=== PATIENT | male | born 1950 | race Caucasian/White ===

== ENCOUNTER 2016-12-01 06:19 | Day surgery (SDC) | payer BC ==
--- NOTE | 2016-11-23 16:55 | HP ---
CC: Dr. Yee; Dr. Colin * ADMITTING HISTORY AND PHYSICAL: DATE OF ADMISSION: 12/01/16 ADMITTING DIAGNOSIS: Left renal calculi. PLANNED PROCEDURE: Shockwave lithotripsy of left renal calculi. SURGEON: Dr. Rueda. HISTORY OF PRESENT ILLNESS: Chase Robertson a 66-year-old gentleman with a history of recurrent renal calculi and episodic flank pain who was noted to have a 9.6- mm calculus in the upper pole of the left kidney and a 4.7-mm calculus in the mid pole. He is now being brought in for lithotripsy. PAST MEDICAL HISTORY: Significant for: 1. Idiopathic peripheral autonomic neuropathy. 2. Renal calculi. 3. Lumbar spinal stenosis. 4. Recent Lyme disease treated with doxycycline. MEDICATIONS ON ADMISSION: Vitamins and supplements. ALLERGIES: 1. Intravenously administered IODINATED CONTRAST. REVIEW OF SYSTEMS: He is otherwise in excellent health. There is no history of diabetes mellitus or any other major systemic illness. PHYSICAL EXAMINATION GENERAL: Reveals a pleasant healthy-appearing middle-aged gentleman. VITAL SIGNS: Blood pressure is 128/84, pulse 74 per minute and regular, oxygen saturation 97% on room air. LUNGS: Clear bilaterally. CARDIOVASCULAR: Regular rate and rhythm. S1, S2. ABDOMEN: Soft with mild left flank tenderness. IMPRESSION: A 66-year-old gentleman with nonobstructing left renal calculi causing episodic flank pain. Planned procedure is shockwave lithotripsy left renal calculi. I have discussed the procedure in detail including possible risks of bleeding, infection, injury to the kidney, and incomplete fragmentation. He appears to understand and wishes to proceed as planned. [id number]/[facility] #: [id number] [facility]
[~2016-12-01 06:19] MED LIST: Buffered Lidocaine 0.9% SYRIN* 5 ML/SYR SYRINGE INTRADERM ONE
[2016-12-01] MEDS ORDERED: cefTRIAXone(*) 2 GM ADDV.VIAL IVPB ONE (06:54)
[2016-12-01] MEDS ORDERED: Buffered Lidocaine 0.9% SYRIN* 5 ML/SYR SYRINGE ONE (06:54)
[2016-12-01] MEDS ORDERED: fentaNYL* 50 MCG/ML 2 ML VIAL (100 MCG VIAL) ONE (08:02)
[2016-12-01] MEDS ORDERED: Propofol* 10 MG/ML 20 ML BTL IV PUSH ONE (08:03)
[2016-12-01] MEDS ORDERED: Lidocaine 2% PF * 5 ML VIAL ONE (08:03)
--- NOTE | 2016-12-01 08:03 | RAD ---
INDICATION: Shock wave lithotripsy of a left renal calculus COMPARISON: Most recent KUB is dated August 19, 2016 TECHNIQUE: 2 views the abdomen were obtained. FINDINGS: There are no acute bony or soft tissue abnormalities. The bowel gas pattern is normal. There is a moderate amount of stool overlying the renal shadows. Overlying the expected location of the left collecting system is a 6 mm calcification. Immediately inferior and lateral to this there is a punctate calcification measuring 2 mm. No calculi are seen overlying the right collecting system. There are no calculi visualized at the expected location of the bilateral ureters or urinary bladder. IMPRESSION: CALCULI OVERLYING THE LEFT RENAL COLLECTING SYSTEM NOT SIGNIFICANTLY CHANGED SINCE THE AUGUST 19, 2016 KUB.
[2016-12-01] MEDS ORDERED: fentaNYL* 50 MCG/ML 2 ML VIAL (100 MCG VIAL) IV PRN (08:25)
[2016-12-01] MEDS ORDERED: oxyCODONE/Acetamin 5/325 MG* TAB PO PRN (08:25)
[2016-12-01] MEDS ORDERED: Furosemide IV* 10 MG/ML 2 ML VIAL (20 MG) ONE (08:36)
[2016-12-01 10:37] VITALS: BP 128/91
--- NOTE | 2016-12-01 16:46 | OP ---
CC: Kaylee Yee MD; Vaughn Rueda MD* OPERATIVE SUMMARY: DATE OF OPERATION: 12/01/16 - [facility] DATE OF : 52 SURGEON: Vaughn Rueda MD. ANESTHESIOLOGIST: Dr. Donovan. ANESTHESIA: General. PRE-OP DIAGNOSIS: Left renal calculi. POST-OP DIAGNOSIS: Left renal calculi. OPERATIVE PROCEDURE: Shockwave lithotripsy of left renal calculi. COMPLICATIONS: None. POSTOPERATIVE CONDITION: Stable. INDICATION: Chase Robertson is a 66-year-old gentleman with a history of recurrent renal calculi. He was recently evaluated and noted to have left renal calculi and is now being brought in for lithotripsy of the same. DESCRIPTION OF PROCEDURE: After induction of general anesthesia, the patient was placed on the lithotripsy table in supine position. There appeared to be two calculi adjacent to each other in the left kidney and these were localized using fluoroscopic monitoring. Shockwave lithotripsy was commenced at a rate of 90 shocks per minute. After the initial 300 shocks, there was a pause in lithotripsy for several minutes in an effort to minimize any potential trauma to the kidney. Lithotripsy was then resumed and a total of 2400 shocks were administered and good fragmentation was observed. The patient tolerated the procedure satisfactorily and was transferred back to the recovery area in stable condition. [id number]/[facility] #: [id number] [facility]
== END 2016-12-01 11:41 | disposition home or self-care (01) ==
LOC: OR 06:19
PROVIDERS: ATTEND Urology
DX: N20.0 Calculus of kidney (principal); Z91.041 Radiographic dye allergy status
CPT/HCPCS: 74000; J0696; J1940; J2704; J3010

== ENCOUNTER 2017-10-31 13:08 | Inpatient (IN) | payer BC ==
[2017-10-31] MEDS ORDERED: Heparin for STEMI(*) 5,000 UNITS/ML 1 ML VIAL IV ONE (13:09)
[2017-10-31] MEDS ORDERED: Ticagrelor* 90 MG TAB PO ONE (13:09)
[2017-10-31] MEDS ORDERED: Nitroglycerin TAB 0.4 MG* 0.4 MG TAB ONE (13:18)
--- NOTE | 2017-10-31 13:20 | ED ---
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 Patient states he felt chest pain, which is not unfamiliar to him, but this was much worse than normal. EMS states that he was not diaphoretic during transit, but had mild anxiety. BP at this time was 160/90. Aspirin and NTG was given by EMS during transit. The pain was rated 7/ 10 in severity initially, but is rated a 4/10 now. Symptoms aggravated by nothing. Symptoms alleviated by nothing. - History of Current Complaint Chief Complaint: EDChestPainROMI Time Seen by Provider: 10/31/17 13:09 Hx Obtained From: Patient, EMS Onset/Duration: Started Minutes Ago Timing: Constant Current Severity: Moderate Pain Intensity: 7 Pain Scale Used: 0-10 Numeric Aggravating Factor(s): Nothing Alleviating Factor(s): Nothing Associated Signs and Symptoms: Positive: Negative - diaphoresis, Anxiety - Allergy/Home Medications Allergies/Adverse Reactions: Allergies Allergy/AdvReac Type Severity Reaction Status Date / Time Iodinated Contrast- Oral and Allergy Hives Verified 10/31/17 15:33 IV Dye SEASONAL ALLERGIES Allergy Mild Unknown Uncoded 12/01/16 06:41 Reaction Details IVP DYE Allergy Hives Uncoded 12/01/16 06:41 PMH/Surg Hx/FS Hx/Imm Hx Previously Healthy: No Endocrine/Hematology History: Denies: Hx Diabetes Cardiovascular History: Denies: Hx Hypertension, Hx Pacemaker/ICD, Other Cardiovascular Problems/ Disorders Respiratory History: Reports: Hx Seasonal Allergies Denies: Other Respiratory Problems/Disorders GI History: Reports: Hx Gastroesophageal Reflux Disease - INFREQUENTLY 1 X MONTHLY R/T DIET Denies: Other GI Disorders History: Reports: Hx Kidney Stones - FREQUENTLY Denies: Hx Renal Disease Musculoskeletal History: Reports: Hx Arthritis - OSTEO, Other Musculoskeletal History - SPINAL STENOSIS Sensory History: Reports: 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 1979' KIDNEY STONE. 1984 RIGHT ANKLE FRACTURE [place]IF- [place]. 2002 HARDWARE REMOVAL RIGHT ANKLE, [facility] [place]. 06/22/2014 CYSTO STENT [facility] [place]07/03/14 RIGHT STENT INSERTION [facility] [place]. 11/24/14, eswl. 12/18/14 eswl. SEVERAL SURGERIES IN 2014 FOR KIDNEY STONES- [facility] [place]. WISDOM TEETH REMOVAL Hx Anesthesia Reactions: No Infectious Disease History: No Infectious Disease History: Denies: Traveled Outside the [place] in Last 30 Days - Family History Known Family History: Positive: Cardiac Disease - Social History Alcohol Use: Weekly Alcohol Amount: 1-2 per week Hx Substance Use: No Substance Use Type: Reports: None Hx Tobacco Use: No Smoking Status (MU): Never Smoked Tobacco Have You Smoked in the Last Year: No Review of Systems Positive: Skin Diaphoresis. Negative: Fever Positive: Chest Pain All Other Systems Reviewed And Are Negative: Yes Physical Exam - Summary Physical Exam Summary: General: well-appearing, mild pain distress Skin: warm, color reflects adequate perfusion, dry Head: normal Eyes: EOMI, MARY JO ENT: normal Neck: supple, nontender Respiratory: CTA, breath sounds present Cardiovascular: RRR Abdomen: soft, nontender Bowel: present Musculoskeletal: normal, strength/ROM intact Neurological: sensory/motor intact, A&O x3 Psychological: affect/mood appropriate Triage Information Reviewed: Yes Vital Signs On Initial Exam: Initial Vitals Temp Pulse Resp BP Pulse Ox 97.2 F 77 20 139/76 99 10/31/17 13:12 10/31/17 13:12 10/31/17 13:12 10/31/17 13:12 10/31/17 13:12 Vital Signs Reviewed: Yes Diagnostics - Vital Signs Vital Signs Temp Pulse Resp BP Pulse Ox 10/31/17 13:12 97.2 F 77 20 139/76 99 - Laboratory Result Diagrams: 10/31/17 13:15 10/31/17 16:40 Lab Statement: Any lab studies that have been ordered have been reviewed, and results considered in the medical decision making process. 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 Patient states he felt chest pain, which is not unfamiliar to him, but this was much worse than normal. Bloodwork Obtained. In the ED course, patient was given Heparin 4000 units IV, NTG tablet 0.4mg SL, Brilinta 180mg PO. 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 CRITICAL CARE TIME LESS THAN 30 MINUTES. - Diagnoses Provider Diagnoses: STEMI (ST elevation myocardial infarction) Discharge - Sign-Out/Discharge Documenting (check all that apply): Patient Departure - Discharge Plan Condition: Stable Disposition: ADMITTED TO [facility] - Billing Disposition and Condition Condition: STABLE Disposition: Admitted to [facility] - Attestation Statements Document Initiated by Mahendra: Yes Documenting Scribe: Elizabeth Garcia Provider For Whom Mahendra is Documenting (Include Credential): Austin Jeronimo MD Scribe Attestation: Elizabeth Platt scribed for Austin Jeronimo MD on 10/31/17 at 1718. Scribe Documentation Reviewed: Yes Provider Attestation: The documentation as recorded by the Elizabeth betancourt accurately reflects the service I personally performed and the decisions made by me, Austin Jeronimo MD
--- OUTSIDE RECORDS SUMMARY | 2017-10-31 13:22 | XMS REPORT ---
:1950 External Reference #:[id number] Author Organization [facility] Address [address] [place] [address] Phone [phone] Care Team Providers Name Role Phone Kaylee Javier Care Team Information Health Unit Coordinator Unavailable Kaylee Javier Primary Care Physician Unavailable Payers Type Date Identification Numbers Payment Provider Subscriber Commercial Effective: Policy Number: [id number] Fowler Plan Cheryl Son 2014 PayID: [id number] [address] [place] [address] Problems Date Description Provider Status Onset: 09/10/2016 Spinal stenosis of lumbar region Kaylee Javier M.D. Active Onset: 10/13/2016 Other idiopathic peripheral Kaylee Javier M.D. Active autonomic neuropathy Onset: 10/13/2016 Kidney stone Kaylee Javier M.D. Active Family History Date Family Member(s) Problem(s) Comments General Prostate Cancer older brother. 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 1 drink a week. Smoking Patient has never smoked Daily Caffeine Daily Caffeine black Exercise Type/Frequency Exercises regularly morning routine - strengthening, stretching - 10-45 minutes. Ride bikes, yard work. Allergies, Adverse Reactions, Alerts Date Description Reaction Status Severity Comments 08/23/2015 IPV Dye active 01/01/2016 Seasonal active Medications Medication Date Status Form Strength Qnty SIG Indications Ordering Provider Doxycycline 10/21 Active Capsules 100mg 21cap take one S00.86xA Kaylee Quijano Hyclate s capsule by Concepcion, chelsy twice M.D. 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 M.DBrigid 10/21 Doxycycline 01/03 Hx Tablets 100mg 2tabs 2 tabs Kaylee Quijano Hyclate /2016 today Brent Javier.DBrigid 01/19 Doxycycline 07/28 Hx Capsules 100mg 2caps 2 po x 1 A69.20 Marianna Hyclate /2016 Brent Jonesnp-C 12/30 Doxycycline 01/31 Hx Capsules 100mg 2caps 2 po x 1 S30.860A Kaylee LBrigid Hyclate /2015 Brent JavierDBrigid 02/05 Doxycycline 12/31 Hx Capsules 100mg 2caps 2 po x 1 S30.860A Marianna Hyclate /2015 Brent Jones-C 01/01 Physical Therapy 10/29 Hx evaluate M48.06 Kaylee LBrigid /2015 and treat Brent Javier low back M.D. 06/17 pain Fax Melida HALE Physical Therapy 07/18 Hx evaluate M48.06 Kaylee LBrigid /2015 and treat Concepcion - low back M.D. 08/22 pain /2016 No Active 03/14 Hx Unknown Medications /2015 - 07/18 No Active 01/05 Hx Unknown Medications /2013 - 10/02 Doxycycline 12/15 Hx Tablets 100mg 42tab 1 by mouth 913.[address] blake twice a day Tyler, - x 3 wks Afnp-C 01/05 Ranitidine HCL 12/15 Hx Tablets 150mg 14tab 1 by mouth 913.4 Chelsea s twice a day Tyler, - x 5-7 days Af-C 12/22 Fexofenadine HCL 12/15 Hx Tablets 180mg 14tab 1 by mouth 913.4 Chelsea s every day x Tyler, - 2 wks Af- 12/29 No Active 09/30 Hx Unknown Medications /2013 - 12/15 Physical Therapy 09/27 Hx treatment Huey Mathew, /2013 and M.D. - evaluation 09/30 for sciatica No Active 05/18 Hx Unknown Medications /2013 - 05/18 Cyclobenzaprine 05/18 Hx Tablets 10mg 30tab 1 by mouth 724.3 Huey Mathew, s three times M.D. 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 05/18 Vivotif Keshia Hx Capsules 1 capsule Unknown Vaccine /0000 DR orally 1 - hour before 03/14 a meal alternate days of day 1, 3, 5 and 7 (one dose remaining) Magnesium Citrate Hx Tablets 100mg Unknown / - 12/31 Tumeric Hx Unknown / - 12/31 Calcium/Magnesium 00 Hx Tablets Vit D3 3 po qd / - 06/28 L-Lysine HCL 00 Hx Tablets 1 po qd Unknown / - 06/28 Vitamin B-12 Hx Tablets 1 po qd Unknown / - 08/07 /2017 Immunizations CPT Code Status Date Vaccine Lot # [id number] Given 05/05/2017 Pneumococcal Conjugate Vacc-13 [id number] Vital Signs Date Vital Result Comment 10/21/2017 BP Systolic 98 mmHg BP Diastolic 60 mmHg Heart Rate 64 /min Body Temperature 97.7 F Respiratory Rate 16 /min Height 68.75 inches 5'8.75" measured 05/05/17 Weight 157.00 lb BMI (Body Mass Index) 23.4 kg/m2 09/24/2017 BP Systolic 122 mmHg BP Diastolic 64 mmHg Heart Rate 66 /min Body Temperature 98.8 F Respiratory Rate 16 /min Height 68.75 inches 5'8.75" measured 05/05/17 Weight 159.12 lb BMI (Body Mass Index) 23.7 kg/m2 09/07/2017 BP Systolic 120 mmHg BP Diastolic 72 mmHg Heart Rate 78 /min Body Temperature 98.0 F Respiratory Rate 18 /min Height 68.75 inches 5'8.75" measured 05/05/17 Weight 158.00 lb BMI (Body Mass Index) 23.5 kg/m2 08/26/2017 BP Systolic 124 mmHg BP Diastolic 80 mmHg Heart Rate 60 /min Body Temperature 97.5 F Respiratory Rate 16 /min Height 68.75 inches 5'8.75" measured 05/05/17 Weight 158.50 lb BMI (Body Mass Index) 23.6 kg/m2 05/05/2017 BP Systolic 128 mmHg BP Diastolic 76 mmHg Heart Rate 72 /min Body Temperature 98.4 F Respiratory Rate 16 /min Height 68.75 inches 5'8.75" measured 05/05/17 Weight 158.50 lb BMI (Body Mass Index) 23.6 kg/m2 Right Visual Acuity Distance 20/70 Left Visual Acuity Distance 20/40 04/20/2017 BP Systolic 116 mmHg BP Diastolic 72 mmHg Heart Rate 70 /min Body Temperature 97.9 F Respiratory Rate 14 /min Height 68.5 inches 5'8.50" Weight 145.00 lb BMI (Body Mass Index) 21.7 kg/m2 01/20/2017 BP Systolic 126 mmHg BP Diastolic 70 mmHg Heart Rate 80 /min Body Temperature 98.2 F Respiratory Rate 16 /min Height 68.5 inches 5'8.50" Weight 162.00 lb BMI (Body Mass Index) 24.3 kg/m2 10/13/2016 BP Systolic 120 mmHg BP Diastolic 80 mmHg Heart Rate 60 /min Body Temperature 98.0 F Respiratory Rate 18 /min Height 68.5 inches 5'8.50" Weight 158.00 lb BMI (Body Mass Index) 23.7 kg/m2 09/10/2016 BP Systolic 160 mmHg BP Diastolic 90 mmHg Heart Rate 68 /min Body Temperature 98.6 F Respiratory Rate 18 /min Height 68.5 inches 5'8.50" Weight 158.00 lb BMI (Body Mass Index) 23.7 kg/m2 07/28/2016 BP Systolic 128 mmHg BP Diastolic 80 mmHg Heart Rate 60 /min Body Temperature 98.8 F Respiratory Rate 16 /min Height 68.5 inches 5'8.50" Weight 153.12 lb BMI (Body Mass Index) 22.9 kg/m2 06/17/2016 BP Systolic 110 mmHg BP Diastolic 70 mmHg Heart Rate 68 /min Body Temperature 98.6 F Respiratory Rate 18 /min Height 68.5 inches 5'8.50" Weight 149.00 lb BMI (Body Mass Index) 22.3 kg/m2 02/06/2016 BP Systolic 120 mmHg BP Diastolic 64 mmHg Heart Rate 68 /min Body Temperature 97.5 F Respiratory Rate 16 /min Height 68.5 inches 5'8.50" Weight 146.00 lb BMI (Body Mass Index) 21.9 kg/m2 01/07/2016 BP Systolic 122 mmHg BP Diastolic 64 mmHg Heart Rate 68 /min Body Temperature 97.4 F Respiratory Rate 16 /min Height 68.5 inches 5'8.50" Weight 150.00 lb BMI (Body Mass Index) 22.5 kg/m2 01/01/2016 BP Systolic 116 mmHg BP Diastolic 60 mmHg Heart Rate 66 /min Body Temperature 97.2 F Respiratory Rate 16 /min Height 68.5 inches 5'8.50" Weight 150.38 lb BMI (Body Mass Index) 22.5 kg/m2 08/23/2015 BP Systolic 128 mmHg BP Diastolic 80 mmHg Heart Rate 60 /min Body Temperature 97.9 F Height 68.5 inches 5'8.50" Weight 159.00 lb BMI (Body Mass Index) 23.8 kg/m2 07/19/2015 BP Systolic 110 mmHg BP Diastolic 70 mmHg Heart Rate 80 /min Body Temperature 98.5 F Respiratory Rate 18 /min Height 68.5 inches 5'8.50" Weight 158.00 lb BMI (Body Mass Index) 23.7 kg/m2 03/14/2015 BP Systolic 130 mmHg BP Diastolic 90 mmHg Heart Rate 73 /min Body Temperature 97.7 F Respiratory Rate 16 /min Height 69 inches 5'9" Weight 162.00 lb BMI (Body Mass Index) 23.9 kg/m2 10/02/2014 BP Systolic 116 mmHg BP Diastolic 78 mmHg Heart Rate 66 /min Body Temperature 97.1 F Respiratory Rate 16 /min Height 69.5 inches 5'9.50" Weight 157.00 lb BMI (Body Mass Index) 22.8 kg/m2 05/26/2014 BP Systolic 124 mmHg BP Diastolic 64 mmHg Heart Rate 68 /min Body Temperature 97.9 F Respiratory Rate 14 /min Height 69.5 inches 5'9.50" Weight 162.00 lb BMI (Body Mass Index) 23.6 kg/m2 05/02/2014 BP Systolic 124 mmHg BP Diastolic 62 mmHg Heart Rate 72 /min Body Temperature 98.0 F Respiratory Rate 12 /min Height 69.5 inches 5'9.50" Weight 162.38 lb BMI (Body Mass Index) 23.6 kg/m2 12/17/2013 BP Systolic 110 mmHg BP Diastolic 70 mmHg Heart Rate 64 /min Body Temperature 98.4 F Respiratory Rate 16 /min O2 % BldC Oximetry 69.5 % Height 69.5 inches 5'9.50" Weight 151.00 lb BMI (Body Mass Index) 22.0 kg/m2 12/15/2013 BP Systolic 124 mmHg BP Diastolic 60 mmHg Heart Rate 62 /min Body Temperature 97.6 F Respiratory Rate 18 /min Height 69.5 inches 5'9.50" Weight 151.00 lb BMI (Body Mass Index) 22.0 kg/m2 09/30/2013 BP Systolic 118 mmHg BP Diastolic 82 mmHg Heart Rate 80 /min Body Temperature 97.5 F Respiratory Rate 16 /min Height 69.5 inches 5'9.50" Weight 148.00 lb BMI (Body Mass Index) 21.5 kg/m2 05/18/2013 BP Systolic 120 mmHg BP Diastolic 70 mmHg Heart Rate 68 /min Body Temperature 97.6 F Respiratory Rate 14 /min Height 69.5 inches 5'9.50" Weight 153.00 lb BMI (Body Mass Index) 22.3 kg/m2 Right Visual Acuity Distance 20/70 Left Visual Acuity Distance 20/40 12/22/2012 BP Systolic 118 mmHg BP Diastolic 72 mmHg Heart Rate 60 /min Body Temperature 97.0 F Respiratory Rate 16 /min Height 69.5 inches 5'9.50" Weight 155.00 lb BMI (Body Mass Index) 22.6 kg/m2 Results Test Date Test Result H/L Range Note CBC Electronic Fma 09/24/2017 WBC 5.9 x10^3/UL 4.0-10.0 RBC 4.65 x10^6/UL 3.93-6.00 HGB 15.5 g/dL 12.0-17.0 HCT 44 % 35-50 MCV 94.6 fL 80.0-95.0 MCH 33.3 pg High 25.6-32.2 MCHC 35.2 g/dL 32.2-36.0 RDW-CV 12.7 % 11.6-14.4 PLT 166 x10^3/UL 163-400 MPV 11.2 fL 9.4-12.4 Maddi# 3.24 x10^3/UL 1.56-6.13 Lymph# 1.97 x10^3/UL 1.18-3.74 Whiteside# 0.49 x10^3/UL 0.24-0.82 Eos # 0.1 x10^3/UL 0.0-0.5 Baso # 0.04 x10^3/UL 0.01-0.08 Maddi% 55.3 % 34.0-70.0 Lymph % 33.6 % 20.0-52.0 Whiteside% 8.4 % 5.0-12.0 Eos% 2.0 % 0.7-7.0 Baso% 0.7 % 0.1-1.2 Basic Metabolic Profile 09/24/2017 Sodium 136 mEq/L 134-149 Potassium 4.3 mEq/L 3.6-5.5 Chloride 105 mEq/L 94-112 Carbon Dioxide 25 mEq/L 21-32 Glucose 89 mg/dL 70-105 BUN 17 mg/dL 6-26 Creatinine 0.8 mg/dL 0.6-1.4 BUN/Creat Ratio 21.3 CALC 8.0-36.0 Calcium 9.1 mg/dL 8.6-10.2 GFR Non- >60 ml/min/1.73m^ >=60 GFR >60 ml/min/1.73m^ >=60 PT And PTT 09/24/2017 Inr 1.0 0.8-1.2 1, 2 Prothrombin Time 10.7 sec 9.1-12.0 1 aPTT 28 sec 24-33 1, 3 CBC Electronic Fma 08/26/2017 WBC 6.7 x10^3/UL 4.0-10.0 RBC 5.15 x10^6/UL 3.93-6.00 HGB 17.0 g/dL 12.0-17.0 HCT 50 % 35-50 MCV 96.3 fL High 80.0-95.0 MCH 33.0 pg High 25.6-32.2 MCHC 34.3 g/dL 32.2-36.0 RDW-CV 13.1 % 11.6-14.4 PLT 182 x10^3/UL 163-400 MPV 11.4 fL 9.4-12.4 Maddi# 4.30 x10^3/UL 1.56-6.13 Lymph# 1.68 x10^3/UL 1.18-3.74 Whiteside# 0.58 x10^3/UL 0.24-0.82 Eos # 0.1 x10^3/UL 0.0-0.5 Baso # 0.03 x10^3/UL 0.01-0.08 Maddi% 64.5 % 34.0-70.0 Lymph % 25.2 % 20.0-52.0 Whiteside% 8.7 % 5.0-12.0 Eos% 1.1 % 0.7-7.0 Baso% 0.5 % 0.1-1.2 PT And PTT 08/26/2017 Inr 1.1 0.8-1.2 4, 5 Prothrombin Time 11.1 sec 9.1-12.0 4 aPTT 29 sec 24-33 4, 6 Laboratory test finding 08/21/2017 PSA Diagnostic 1.378 ng/mL 0-4.0 7, 8 Laboratory test finding 05/06/2017 PSA 2.0 ng/mL 0.0-4.0 Vitamin D25 33 30-100 CBC Electronic Fma 05/06/2017 WBC 8.6 x10^3/UL 4.0-10.0 RBC 4.90 x10^6/UL 3.93-6.00 HGB 16.1 g/dL 12.0-17.0 HCT 47 % 35-50 MCV 96.7 fL High 80.0-95.0 MCH 32.9 pg High 25.6-32.2 MCHC 34.0 g/dL 32.2-36.0 RDW-CV 12.8 % 11.6-14.4 PLT 239 x10^3/UL 163-400 MPV 11.4 fL 9.4-12.4 Maddi# 5.62 x10^3/UL 1.56-6.13 Lymph# 2.04 x10^3/UL 1.18-3.74 Whiteside# 0.71 x10^3/UL 0.24-0.82 Eos # 0.2 x10^3/UL 0.0-0.5 Baso # 0.05 x10^3/UL 0.01-0.08 Maddi% 65.1 % 34.0-70.0 Lymph % 23.6 % 20.0-52.0 Whiteside% 8.2 % 5.0-12.0 Eos% 2.3 % 0.7-7.0 Baso% 0.6 % 0.1-1.2 Comprehensive Metabolic Prof 05/06/2017 Sodium 135 mEq/L 134-149 Potassium 4.4 mEq/L 3.6-5.5 Chloride 97 mEq/L 94-112 Carbon Dioxide 27 mEq/L 21-32 Glucose 111 mg/dL High 70-105 9 BUN 15 mg/dL 6-26 Creatinine 0.9 mg/dL 0.6-1.4 BUN/Creat Ratio 16.7 CALC 8.0-36.0 Calcium 9.5 mg/dL 8.6-10.2 Total Protein 7.0 g/dL 6.4-8.3 Albumin 4.5 g/dL 3.8-5.5 Globulin 2.5 g/dL 2.0-4.8 A/G Ratio 1.8 CALC 0.6-2.3 Alk. Phosphatase 75 U/L 22-95 Alt (SGPT) 22 U/L 7-35 Ast (Sgot) 18 U/L 5-34 Total Bilirubin 0.6 mg/dL 0.2-1.3 GFR Non- >60 ml/min/1.73m^ >=60 GFR >60 ml/min/1.73m^ >=60 Lipid Profile 05/06/2017 Cholesterol 243 mg/dL High 120-200 Triglycerides 126 mg/dL 30-200 HDL Cholesterol 51 mg/dL 30-70 LDL (Calculated) 167 CALC High 0-129 VLDL Cholesterol 25 mg/dL 0-50 HDL Risk Factor 4.8 CALC High 0.0-4.4 Laboratory test finding 05/06/2017 TSH 2.59 mIU/L 0.50-6.00 Bartonella Antibody Panel 07/28/2016 B. henselae IgG Negative titer Neg:< 1:320 10 B. henselae IgM Negative titer Neg:<1:100 10 B. martínez IgG Negative titer Neg:<1:320 10 B. martínez IgM Negative titer Neg:<1:100 10, 11 Lyme, Western Blot, Serum 07/28/2016 IgG P93 Ab. Absent 10 IgG P66 Ab. Absent 10 IgG P58 Ab. Absent 10 IgG P45 Ab. Absent 10 IgG P41 Ab. Present 10 IgG P39 Ab. Absent 10 IgG P30 Ab. Absent 10 IgG P28 Ab. Absent 10 IgG P23 Ab. Absent 10 IgG P18 Ab. Absent 10 Lyme IgG WB Interp. Negative 10, 12 IgM P41 Ab. Absent 10 IgM P39 Ab. Absent 10 IgM P23 Ab. Absent 10 Lyme IgM WB Interp. Negative 10, 13 Laboratory test finding 11/14/2015 Folic Acid (Folate) > 20.00 ng/mL > 3.99 14 Vitamin B12 422 pg/mL 180-914 15 Lyme Disease Serology Negative Negative 16 Protein Electrophoresis 11/14/2015 Total Protein(Pep) 6.7 g/dL 6.3 - 7.9 Albumin 3.7 g/dL 3.4-4.7 Alpha-1 Globulin 0.2 g/dL 0.1-0.3 Alpha-2 Globulin 0.8 g/dL 0.6-1.0 Beta Globulin 0.8 g/dL 0.7-1.2 Gamma Globulin 1.2 g/dL 0.6-1.6 Albumin/Globulin Ratio 1.25 Impression See Comment 17 Connective Tissue Panel 11/14/2015 Anti-Nuclear Antibody 0.1 U 18 Cyclic Citrullinated Peptide <15.6 U 19 Interpretation See Comment 20 Laboratory test finding 11/14/2015 Methylmalonic Acid Mma 0.34 nmol/mL <= 0.40 21 Laboratory test finding 09/27/2015 PSA Screening 1.138 ng/mL 0-4.0 22 Laboratory test finding 08/23/2015 Quickstrep NEGATIVE Negative CBC With 07/27/2015 WBC 7.3 x10E3/uL 3.4-10.8 23 Differential/Platelet RBC 4.73 x10E6/uL 4.14-5.80 23 Hemoglobin 15.7 g/dL 12.6-17.7 23 Hematocrit 46.8 % 37.5-51.0 23 MCV 99 fL High 79-97 23 MCH 33.2 pg High 26.6-33.0 23 MCHC 33.5 g/dL 31.5-35.7 23 RDW 13.3 % 12.3-15.4 23 Platelets 185 x10E3/uL 150-379 23 Neutrophils 57 % 23 Lymphs 29 % 23 Monocytes 8 % 23 Eos 6 % 23 Basos 0 % 23 Immature Cells TNP 23 Neutrophils (Absolute) 4.1 x10E3/uL 1.4-7.0 23 Lymphs (Absolute) 2.1 x10E3/uL 0.7-3.1 23 Monocytes(Absolute) 0.6 x10E3/uL 0.1-0.9 23 Eos (Absolute) 0.4 x10E3/uL 0.0-0.4 23 Baso (Absolute) 0.0 x10E3/uL 0.0-0.2 23 Immature Granulocytes 0 % 23 Immature Grans (Abs) 0.0 x10E3/uL 0.0-0.1 23 NRBC TNP 23 Hematology Comments: TNP 23 Comp. Metabolic Panel (14) 07/27/2015 Glucose, Serum 94 mg/dL 65-99 23 BUN 20 mg/dL 8-27 23 Creatinine, Serum 0.93 mg/dL 0.76-1.27 23 eGFR If NonAfricn Am 87 mL/min/1.73 >59 23 eGFR If Africn Am 101 mL/min/1.73 >59 23 BUN/Creatinine Ratio 22 10-22 23 Sodium, Serum 145 mmol/L High 134-144 23 Potassium, Serum 4.8 mmol/L 3.5-5.2 23 Chloride, Serum 104 mmol/L 97-108 23 Carbon Dioxide, Total 25 mmol/L 18-29 23 Calcium, Serum 9.0 mg/dL 8.6-10.2 23 Protein, Total, Serum 6.5 g/dL 6.0-8.5 23 Albumin, Serum 4.2 g/dL 3.6-4.8 23 Globulin, Total 2.3 g/dL 1.5-4.5 23 A/G Ratio 1.8 1.1-2.5 23 Bilirubin, Total 0.4 mg/dL 0.0-1.2 23 Alkaline Phosphatase, S 62 IU/L 39-117 23 Ast (Sgot) 19 IU/L 0-40 23 Alt (SGPT) 17 IU/L 0-44 23 Laboratory test finding 07/27/2015 TSH 3.460 uIU/mL 0.450-4.500 23 Thyroxine (T4) Free, Direct, S 1.18 ng/dL 0.82-1.77 23 Vitamin D, 25-Hydroxy 22.9 ng/mL Low 30.0-100.0 23, 24 Stone Analysis 11/24/2014 Kidney Stone Source Bladder Kidney Stone 1st Constituent See Comment 25 Kidney Stone 2nd Constituent See Comment 26 Basic Metabolic Panel 10/17/2014 Sodium 138 mmol/L 133-145 Potassium 4.2 mmol/L 3.5-5.0 Chloride 106 mmol/L 101-111 Co2 Carbon Dioxide 26 mmol/L 22-32 Anion Gap 6 mmol/L 2-11 Glucose 86 mg/dL 70-100 Blood Urea Nitrogen 12 mg/dL 6-24 Creatinine 0.78 mg/dL 0.67-1.17 BUN/Creatinine Ratio 15.4 8-20 Calcium 8.9 mg/dL 8.6-10.3 Egfr Non- 100.5 >60 Egfr 129.3 >60 27 Laboratory test finding 10/17/2014 Inr/Protime 0.90 0.78-1.07 Laboratory test finding 10/02/2014 C-Reactive Protein 0.7 mg/L 0.0-5.0 28 TSH (Thyrotropin) 3.210 uIU/ml 0.350-5.500 28 CBC 10/02/2014 WBC 7.9 x10E3/uL 4.3-10.9 28 RBC 4.75 x10E6/uL 4.70-6.20 28 Hemoglobin 15.9 g/dL 13.0-17.0 28 Hematocrit 46.4 % 39.0-50.0 28 MCV 97.7 fl 82.0-98.0 28 MCH 33.5 pg 27.5-33.5 28 MCHC 34.3 g/dL 32.0-36.0 28 RDW 12.8 % 11.5-14.5 28 Platelet Count 196 x10E3/uL 130-400 28 MPV 12.1 fl 8.6-12.6 28 Segmented Neutrophils 65.2 % 44.0-74.0 28 Lymphocytes 22.3 % 15.0-45.0 28 Monocytes 10.1 % 2.0-13.0 28 Eosinophils 1.9 % 0.0-6.0 28 Basophils 0.5 % 0.0-2.0 28 Neutrophil Absolute 5.2 x10E3/uL 1.4-7.0 28 Lymphocytes Absolute 1.8 x10E3/uL 1.0-3.4 28 Monocyte Absolute 0.8 x10E3/uL 0.2-1.0 28 Eosinophil Absolute 0.2 x10E3/uL 0.0-0.5 28 Basophil Absolute 0.0 x10E3/uL 0.0-0.2 28 Lyme Total AB Test/Reflex 10/02/2014 Lyme IgG/IgM Ab <0.91 ISR 0.00-0.90 28, 29 Stone Analysis 06/21/2014 Kidney Stone Source Bladder Kidney Stone 1st Constituent See Comment 30 Kidney Stone 2nd Constituent See Comment 31 Laboratory test finding 06/19/2014 Potassium Redraw 4.3 mmol/L 3.5-5.0 Ast Redraw 21 U/L 13-39 Urine Culture And Sensitivities 06/19/2014 Urine Culture (SEE NOTE) 32 Urinalysis Profile 06/19/2014 Urine Color Straw Urine Appearance Clear Urine Specific [place] 1.006 Low 1.010-1.030 Urine pH 7.0 5-9 Urine Urobilinogen Negative Negative Urine Ketones Trace Negative Urine Protein Negative Negative Urine Leukocytes Negative Negative Urine Blood 1+ Negative Urine Nitrite Negative Negative Urine Bilirubin Negative Negative Urine Glucose Negative Negative Urine White Blood Cell Trace(0-5/hpf) Absent Urine Red Blood Cell 1+(3-5/hpf) Absent Urine Bacteria 1+ Absent CBC Auto Diff 06/19/2014 White Blood Count 15.0 10^3/uL High 4.8-10.8 Red Blood Count 4.79 10^6/uL 4.0-5.4 Hemoglobin 16.1 g/dL 14.0-18.0 Hematocrit 48 % 42-52 Mean Corpuscular Volume 101 fL High 80-94 Mean Corpuscular Hemoglobin 34 pg High 27-31 Mean Corpuscular HGB Conc 33 g/dL 31-36 Red Cell Distribution Width 14 % 10.5-15 Platelet Count 253 10^3/uL 150-450 Mean Platelet Volume 11 um3 High 7.4-10.4 Abs Neutrophils 13.3 10^3/uL High 1.5-7.7 Abs Lymphocytes 0.8 10^3/uL Low 1.0-4.8 Abs Monocytes 0.5 10^3/uL 0-0.8 Abs Eosinophils 0.1 10^3/uL 0-0.6 Abs Basophils 0.3 10^3/uL High 0-0.2 Abs Nucleated RBC 0.01 10^3/uL Granulocyte % 88.8 % High 38-83 Lymphocyte % 5.4 % Low 25-47 Monocyte % 3.3 % 1-9 Eosinophil % 0.4 % 0-6 Basophil % 2.1 % High 0-2 Nucleated Red Blood Cells % 0.1 Comp Metabolic Panel 06/19/2014 Sodium 133 mmol/L 133-145 Potassium TNP mmol/L 3.5-5.0 33 Chloride 101 mmol/L 101-111 Co2 Carbon Dioxide 25 mmol/L 22-32 Anion Gap TNP mmol/L 2-11 Glucose 105 mg/dL High 70-100 Blood Urea Nitrogen 17 mg/dL 6-24 Creatinine 1.30 mg/dL High 0.67-1.17 BUN/Creatinine Ratio 13.1 8-20 Calcium 9.7 mg/dL 8.6-10.3 Total Protein 7.3 g/dL 6.4-8.9 Albumin 4.6 g/dL 3.2-5.2 Globulin 2.7 g/dL 2-4 Albumin/Globulin Ratio 1.7 1-3 Total Bilirubin 0.60 mg/dL 0.2-1.0 Alkaline Phosphatase 47 U/L 34-104 Alt 23 U/L 7-52 Ast TNP U/L 13-39 34 Egfr Non- 55.9 >60 Egfr 71.9 >60 35 Laboratory test finding 06/19/2014 Lipase 6 U/L Low 11.0-82.0 C Reactive Protein 8.80 mg/L High < 5.00 36 Laboratory test 12/15/2013 Lyme Disease Serology Negative Negative 37 finding Ehrlichia Igg & Igm 12/15/2013 Anaplasma phagocytophila <1:64 titer <1: 64 38 Abs IgG Ehrlichia chaffeensis IgG AB <1:64 titer <1:64 39 Complete Blood Count 10/20/2013 WBC 6.4 x10^3/UL 3.6-9.6 RBC 4.26 x10^6/UL 3.90-5.70 HGB 14.3 g/dL 12.1-17.2 HCT 42 % 36-50 MCV 99.0 fL High 82.2-97.4 MCH 33.6 pg High 27.6-33.3 MCHC 33.9 g/dL 33.0-35.5 RDW 11.8 % 11.6-13.7 PLT 173 x10^3/UL 150-400 MPV 8.7 fL 7.4-10.4 Gran # 4.1 x10^3/UL 1.5-7.2 Lymph# 2.1 x10^3/UL 0.7-4.9 Whiteside# 0.2 x10^3/UL 0.1-0.9 Gran % 61.2 % 42.2-75.2 Lymph % 34.6 % 20.5-51.1 Whiteside% 4.2 % 1.7-9.3 Complete Blood Count 09/30/2013 WBC 5.5 x10^3/UL 3.6-9.6 RBC 4.88 x10^6/UL 3.90-5.70 HGB 16.6 g/dL 12.1-17.2 HCT 48 % 36-50 MCV 99.0 fL High 82.2-97.4 MCH 34.0 pg High 27.6-33.3 MCHC 34.3 g/dL 33.0-35.5 RDW 11.8 % 11.6-13.7 PLT 139 x10^3/UL Low 150-400 40 MPV 9.2 fL 7.4-10.4 Gran # 4.1 x10^3/UL 1.5-7.2 Lymph# 1.2 x10^3/UL 0.7-4.9 Whiteside# 0.2 x10^3/UL 0.1-0.9 Gran % 73.8 % 42.2-75.2 Lymph % 21.9 % 20.5-51.1 Whiteside% 4.3 % 1.7-9.3 West Nile Igg And Igm 09/30/2013 West Nile Virus IgG Negative Negative West Nile Virus IgM Negative Negative 41 Lyme Western Blot 09/30/2013 Lyme Disease IgG Ab WB Negative Negative Lyme Disease IgG Bands Present p41, p23, kDa Lyme Disease IgM Ab WB Negative Negative Lyme Disease IgM Bands Present No bands detecte <SEE NOTE> kDa 42 Lyme Disease Interpretation See Comment 43 Ua - Non Micro (Fma) 05/18/2013 Appearance CLEAR Color YELLOW Glucose NEG Bilirubin NEG Ketones NEG SP Grav 1.020 Blood NEG PH 7.0 Protein NEG Urobil 0.2 Nitrite NEG Leukocytes (Fma/CMC/Centrex) NEG Comprehensive Metabolic Prof 05/10/2013 Sodium 144 mEq/L 134-149 Potassium 4.5 mEq/L 3.6-5.5 Chloride 101 mEq/L 94-112 Carbon Dioxide 25 mEq/L 21-32 Glucose 90 mg/dL 70-105 BUN 16 mg/dL 6-26 Creatinine 0.9 mg/dL 0.6-1.4 BUN/Creat Ratio 17.8 CALC 8.0-36.0 Calcium 8.8 mg/dL 8.6-10.2 Total Protein 7.0 g/dL 6.3-8.1 Albumin 4.5 g/dL 3.8-5.5 Globulin 2.5 g/dL 2.0-4.8 A/G Ratio 1.8 CALC 0.6-2.3 Alk. Phosphatase 73 U/L 22-95 Alt (SGPT) 26 U/L 10-40 Ast (Sgot) 25 U/L 5-34 Total Bilirubin 0.7 mg/dL 0.2-1.3 Lipid Profile 05/10/2013 Cholesterol 176 mg/dL 120-200 Triglycerides 109 mg/dL 30-200 HDL Cholesterol 44 mg/dL 30-70 LDL (Calculated) 110 CALC 0-129 VLDL Cholesterol 22 mg/dL 0-50 HDL Risk Factor 4.0 CALC 0.0-4.4 Complete Blood Count 05/10/2013 WBC 5.2 x10^3/UL 3.6-9.6 RBC 4.69 x10^6/UL 3.90-5.70 HGB 15.4 g/dL 12.1-17.2 HCT 47 % 36-50 MCV 99.0 fL High 82.2-97.4 MCH 32.9 pg 27.6-33.3 MCHC 33.1 g/dL 33.0-35.5 RDW 12.3 % 11.6-13.7 PLT 199 x10^3/UL 150-400 MPV 8.5 fL 7.4-10.4 Gran # 3.2 x10^3/UL 1.5-7.2 Lymph# 1.8 x10^3/UL 0.7-4.9 Whiteside# 0.2 x10^3/UL 0.1-0.9 Gran % 60.3 % 42.2-75.2 Lymph % 35.0 % 20.5-51.1 Whiteside% 4.7 % 1.7-9.3 Ehrlichia Igg & Igm Abs 01/13/2013 Anaplasma phagocytophila IgG <1:64 titer <1:64 44 Ehrlichia chaffeensis IgG AB <1:64 titer <1:64 45 Laboratory test finding 01/13/2013 Babesiosis Evaluation <1:64 titer <1: 64 46 Lyme Disease Serology Negative Negative 47 1 2 PLASMA POUR OFFS FROM LI T BLUE TOP TUBES FROZEN 2 Reference interval is for non-anticoagulated patients. Suggested INR therapeutic range for Vitamin K antagonist therapy: Standard Dose (moderate intensity therapeutic range): 2.0 - 3.0 Higher intensity therapeutic range 2.5 - 3.5 3 This test has not been validated for monitoring unfractionated heparin therapy. aPTT-based therapeutic ranges for unfractionated heparin therapy have not been established. For general guidelines on Heparin monitoring, refer to the [employer] of Services. 4 2 [facility] and [facility] 5 Reference interval is for non-anticoagulated patients. Suggested INR therapeutic range for Vitamin K antagonist therapy: Standard Dose (moderate intensity therapeutic range): 2.0 - 3.0 Higher intensity therapeutic range 2.5 - 3.5 6 This test has not been validated for monitoring unfractionated heparin therapy. aPTT-based therapeutic ranges for unfractionated heparin therapy have not been established. For general guidelines on Heparin monitoring, refer to the [facility] Directory of Services. 7 ADDITIONAL COPIES TO CONCEPCION 8 Serum levels of PSA measured using the [employer] DXI Hybritech immunoassay should not be interpreted as absolute evidence of the presence or absence of disease. The PSA value should be used in conjunction with other pertinent clinical diagnostic procedures. The values obtained with different assay methods or kits cannot be used interchangeably. 9 RESULTS VERIFIED BY REPEAT ANALYSIS 10 11 Note: Bartonella henselae is now regarded as the etiologic agent of Cat Scratch Disease, bacillary angiomatosis, endocarditis and fever with bacteremia. Bartonella martínez also causes bacillary angiomatosis particularly among immunocompromised patients, and trench fever. This test was developed and its performance characteristics determined by [employer]. It has not been cleared or approved by the Food and Drug Administration. The FDA has determined that such clearance or approval is not necessary. 12 Positive: 5 of the following Borrelia-specific bands: 18,23,28,30,39,41,45,58, 66, and 93. Negative: No bands or banding patterns which do not meet positive criteria. 13 Note: An equivocal or positive EIA result followed by a negative Western Blot result is considered NEGATIVE. An equivocal or positive EIA result followed by a positive Western Blot is considered POSITIVE by the CDC. Positive: 2 of the following bands: 23,39 or 41 Negative: No bands or banding patterns which do not meet positive criteria. Criteria for positivity are those recommended by CDC/ASTPHLD. p23=Osp C, g59=hdosumpok Note: Sera from individuals with the following may cross react in the Lyme Western Blot assays: other spirochetal diseases (periodontal disease, leptospirosis, relapsing fever, yaws, and pinta); connective autoimmune (Rheumatoid Arthritis and Systemic Lupus Erythematosus and also individuals with Antinuclear Antibody); other infections ([place] Spotted Fever; Luanne-Summers Virus, and Cytomegalovirus). 14 with immunofixation Copy Result to: KAYLEE JAVIER ([id number]) 15 Normal Range 180 to 914 Indeterminate Range 145 to 180 Deficient Range <145 16 Serologic response to B. burgdorferi infection is not detected, but cannot rule out early infection during which low or undetectable antibody levels to B. burgdorferi may be present. If clinically indicated, a new serum specimen should be submitted in 7-14 days. Test Performed by: [place] [address] [employer]: Austin Hernandez II, M.D., Ph.D. 17 RESULT: No apparent monoclonal protein on serum electrophoresis. Test Performed by: [place] [id number] [employer]: Austin Hernandez II, M.D., Ph.D. 18 REFERENCE VALUE <=1.0 (Negative) 19 REFERENCE VALUE <20.0 (Negative) 20 Tests for antibodies to dsDNA and MONTY antigens are not performed automatically unless the KIM result is > or= 3.0 U. Studies performed at [facility] indicate that positive KIM results <3.0 U are rarely accompanied by positive second order tests. Test Performed by: [place] [address] [employer]: Austin Hernandez II, M.D., Ph.D. 21 Test Performed by: [place] [address] [employer]: Austin Hernandez II, M.D., Ph.D. 22 Serum levels of PSA measured using the [employer] DXI Hybritech immunoassay should not be interpreted as absolute evidence of the presence or absence of disease. The PSA value should be used in conjunction with other pertinent clinical diagnostic procedures. The values obtained with different assay methods or kits cannot be used interchangeably. 23 2 SSTS 24 Vitamin D deficiency has been defined by the [place] of [employer] and an Endocrine Society practice guideline as a level of serum 25-OH vitamin D less than 20 ng/mL (1,2). The Endocrine Society went on to further define vitamin D insufficiency as a level between 21 and 29 ng/mL (2). 1. IOM ([place] of [employer]). 2010. Dietary reference intakes for calcium and D. [place]: The National Academies Press. 2. Juvenal GUSMAN, Dandre STRATTON, Vi BALBUENA, et al. Evaluation, treatment, and prevention of vitamin D deficiency: an Endocrine Society clinical practice guideline. JCEM. 2010; 96(7):1911-30. 25 RESULT: 70% Calcium oxalate monohydrate 26 RESULT: 30% Calcium phosphate (apatite) Test Performed by: [address] [address] [employer]: Austin Hernandez II, M.D., Ph.D. 27 Because ethnic data is not always readily available, this report includes an eGFR for both -Americans and non- Americans. The National Kidney Disease Education Program (NKDEP) does not endorse the use of the MDRD equation for patients that are not between the ages of 18 and 70, are , have extremes of body size, muscle mass, or nutritional status, or are non- or non-. According to the National Kidney Foundation, irrespective of diagnosis, the stage of the disease is based on the level of kidney function: Stage Description GFR(mL/min/1.73 m(2)) 1 Kidney damage with normal or decreased GFR 90 2 Kidney damage with mild decrease in GFR 60-89 3 Moderate decrease in GFR 30-59 4 Severe decrease in GFR 15-29 5 Kidney failure <15 (or dialysis) 28 2 SSTS; 1 LAV 29 Negative <0.91 Equivocal 0.91 - 1.09 Positive >1.09 30 RESULT: 80% Calcium phosphate (apatite) 31 RESULT: 20% Calcium carbonate Test Performed by: [facility] [place] [id number] [employer]: Austin Hernandez II, M.D., Ph.D. 32 RUN DATE: 06/22/14 [facility] LAB LIVE PAGE 1 RUN TIME: [address] [place], [place] [address] Specimen Inquiry Name: JOANNA PAN : [address]: Thor Crews MD Acct: [id number] Unit: [id number] AGE: 63 Location: ED Re06/19/14 SEX: M Status: DEP ER SPEC: [id number] LAENNA: 06/19/14-[address] [facility] [address]: Thor Crews MD REQ: [id number] RECD: 06/20/14 STATUS: ERIN LENTZ DR: Huey Mathew MD _ SOURCE: URINE SPDESC: ORDERED: Urine Culture Procedure Result Verified Site Urine Culture Final 06/22/14- 1019 ML No Growth Day 2 (<1,000 CFU/mL) * ML - MAIN LAB ([facility]) . END OF REPORT * ML=Testing performed at Main Lab DEPARTMENT OF PATHOLOGY, [address] [place] [address] Jonas Potts M.D. Director [facility] # [id number] 33 Unable to report test result due to hemolysis. 34 Unable to report test result due to hemolysis. 35 Because ethnic data is not always readily available, this report includes an eGFR for both -Americans and non- Americans. The National Kidney Disease Education Program (NKDEP) does not endorse the use of the MDRD equation for patients that are not between the ages of 18 and 70, are , have extremes of body size, muscle mass, or nutritional status, or are non- or non-. According to the National Kidney Foundation, irrespective of diagnosis, the stage of the disease is based on the level of kidney function: Stage Description GFR(mL/min/1.73 m(2)) 1 Kidney damage with normal or decreased GFR 90 2 Kidney damage with mild decrease in GFR 60-89 3 Moderate decrease in GFR 30-59 4 Severe decrease in GFR 15-29 5 Kidney failure <15 (or dialysis) 36 Acute inflammation: >10.00 37 Serologic response to B. burgdorferi infection is not detected, but cannot rule out early infection during which low or undetectable antibody levels to B. burgdorferi may be present. If clinically indicated, a new serum specimen should be submitted in 7-14 days. Test Performed by: [facility] [place] [address] [employer]: Darrell Rangel M.D. 38 ADDITIONAL INFORMATION Analyte Specific Reagent: This test was developed and its performance characteristics determined by [facility]. It has not been cleared or approved by the U.S. Food and Drug Administration. 39 ADDITIONAL INFORMATION Analyte Specific Reagent: This test was developed and its performance characteristics determined by [facility]. It has not been cleared or approved by the U.S. Food and Drug Administration. Test Performed by: [place] [address] [employer]: Darrell Rangel M.D. 40 RESULTS VERIFIED BY REPEAT ANALYSIS 41 Test Performed by: [place] [address] [employer]: Shailesh Baires III, M.D. 42 No bands detected 43 Specific serologic response to B. burgdorferi infection is not detected, but cannot rule out early infection during which low or undetectable antibody levels to B. burgdorferi may be present. If clinically indicated, a new serum specimen should be submitted in 7-14 days. CDC criteria require >=5 bands for IgG or >=2 bands for IgM for the Immunoblot to be considered positive. Bands (e.g.,p41) may be detected in patients without Lyme disease, and patterns not meeting the CDC criteria should be interpreted with caution. Immunoblot should be ordered only on specimens that are positive or equivocal by a FDA-licensed Lyme disease antibody screening test (e.g., EIA). Test Performed by: [place] [address] [employer]: Shailesh Baires III, M.D. 44 Analyte Specific Reagent: This test was developed and its performance characteristics determined by [facility]. It has not been cleared or approved by the U.S. Food and Drug Administration. 45 Analyte Specific Reagent: This test was developed and its performance characteristics determined by [facility]. It has not been cleared or approved by the U.S. Food and Drug Administration. Test Performed by: [place] [address] [employer]: Shailesh Baires III, M.D. 46 Analyte Specific Reagent: This test was developed and its performance characteristics determined by [facility]. It has not been cleared or approved by the U.S. Food and Drug Administration. Test Performed by: [place] [address] [employer]: Shailesh Baires III, M.D. 47 Serologic response to B. burgdorferi infection is not detected, but cannot rule out early infection during which low or undetectable antibody levels to B. burgdorferi may be present. If clinically indicated, a new serum specimen should be submitted in 7-14 days. Test Performed by: [place] [address] [employer]: Shailesh Baires III, M.D. Procedures Date CPT Code Description Status Comment 08/26/2017 10611 Electrocardiogram Complete Completed 05/05/2017 60885 Vision Test- screening test of Completed visual acuity, quantitative, bila 01/20/2017 98956 Remove Impact Cerumen Irrigati Completed 05/02/2014 86987 Destruction-1 Beign Lesion Completed 05/18/2013 65893 CPHL SHQ Completed 05/18/2013 48883 Vision Test- screening test of Completed visual acuity, quantitative, bila 03/09/2009 Colonoscopy Completed polyps. unknown type. Jose Zhang Encounters Type Date Location Provider CPT E/M Dx Office Visit 09/24/2017 9:00a [facility] Kaylee Javier, [address]51 Z01.818 Jeni M48.07 S40.861A W57.xxxA Office Visit 09/07/2017 6:45p [place] [address] R21 S40.861A W57.xxxA Office Visit 08/26/2017 11:00a Main Office Kaylee Javier M.D. 54535 Z01.818 M48.07 E78.2 Office Visit 05/05/2017 1:00p Main Office Kaylee Javier M.D. 95642 Z00.00 M48.061 Z23 F07.81 Z12.5 E55.9 Office Visit 04/20/2017 11:40a [facility] Manny Staley, 69[address] S00.03xA W00.0xxA Office Visit 01/20/2017 11:30a [facility] Drew Wells-Fanny 65676 H61.21 Office Visit 10/13/2016 1:10p Main Office Kaylee Javier M.D. 74959 N20.0 A69.20 M48.06 G90.09 Office Visit 09/10/2016 1:40p Main Office Kaylee Javier M.D. 05113 M48.06 G90.09 M51.16 Office Visit 07/28/2016 2:20p Main Office Kaylee Javier M.D. 55034 M48.06 A69.20 G90.09 Office Visit 06/17/2016 9:20a [facility] Kaylee Javier M.D. 24103 M48.06 G90.09 F43.21 Office Visit 02/06/2016 3:20p Main Office Kaylee Javier M.D. 33099 G90.09 E55.9 R25.2 M48.06 Office Visit 01/07/2016 9:20a Main Office Kaylee Javier M.D. 01536 S30.860D M48.06 N20.0 G90.09 W57.xxxD Office Visit 01/01/2016 11:30a Main Office Marianna ToñitoDrew power-Fanny 86045 S30.860A W57.xxxA Office Visit 08/23/2015 10:30a Main Office Marianna ToñitoDrew power-Fanny [address]8410 J02.9 Office Visit 07/19/2015 9:00a [facility] Kaylee Javier M.D. 34514 Z00.00 M48.06 N20.0 G90.09 E55.9 Z79.1 Office Visit 03/14/2015 2:00p Main Office Marianna DenisDrew mejia-Fanny 19631 Z00.00 L98.8 M54.89 M48.06 Office Visit 10/02/2014 2:15p [place] [address] 716.88 780.79 477.9 Office Visit 05/26/2014 3:40p [facility] Huey Mathew M.D. 79090 724.3 Office Visit 12/17/2013 9:30a Main Office Marianna DenisDrew mejia-Fanny 42468 913.4 Office Visit 12/15/2013 1:45p Main Office Chelsea MccalligneDrew-Fanny 16948 913.4 E906.4 Office Visit 09/30/2013 10:15a [place] [address] 079.99 Office Visit 05/18/2013 2:40p Main Office Huey Mathew M.D. 77188 V70.0 724.3 Office Visit 12/22/2012 10:00a [facility] Office Lela Oates, [facility] 52346 E906.4 911.4 Plan of Care 10/21/2017 - Kaylee Javier M.D.S00.86xA Insect bite (nonvenomous) of other part of head, init encntrNew Medication:Doxycycline Hyclate 100 mgComments:ok to take it with food if it bothers your stomach. Protect yourself from the sun. take probiotics. Ask your if your left eye looks different from usual to her.M48.07 Spinal stenosis, lumbosacral regionComments:s/p surgery. doing well. No jumping over fences or unusual activity. No heavy lifting, heavy housework until released to any activity by the surgeon.AllComments:~B_~U_ Medication Management~b_~u_ Patient Understands medications he's taking? Yes No Are there Barriers to Adherence? Yes No Has the patient been asked about herbal supplements and therapies, and OTC meds? Yes No
[2017-10-31] MEDS ORDERED: fentaNYL* 50 MCG/ML 2 ML VIAL (100 MCG VIAL) ONE (13:24)
[2017-10-31] MEDS ORDERED: Midazolam* 1 MG/ML 10 ML VIAL (10 MG) ONE (13:24)
[2017-10-31 13:25] LABS: ABS Basophils 0.1 10^3/ul (0-0.2); ABS Eosinophils 0.1 10^3/ul (0-0.6); ABS Lymphocytes 2.3 10^3/ul (1.0-4.8); ABS Monocytes 0.7 10^3/ul (0-0.8); ABS Neutrophils 4.4 10^3/ul (1.5-7.7); ABS Nucleated RBC 0 10^3/ul; Eosinophil % 0.9 % (0-6); Hematocrit 45 % (42-52); Hemoglobin 15.4 g/dl (14.0-18.0); Mean Corpuscular HGB Conc 34 g/dl (31-36); Mean Corpuscular Hemoglobin 33 pg (27-31); Mean Corpuscular Volume 97 fL (80-94); Mean Platelet Volume 10.1 um3 (7.4-10.4); Nucleated Red Blood Cells % 0.1; Platelet Count 155 10^3/ul (150-450); Red Blood Count 4.65 10^6/ul (4.00-5.40); Red Cell Distribution Width 13 % (10.5-15); White Blood Count 7.6 10^3/ul (3.5-10.8)
[2017-10-31] MEDS ORDERED: Heparin(*) 1000 UNIT/ML 10 ML VIAL CATH LAB IV ONE (13:25)
[2017-10-31] MEDS ORDERED: methylPREDNISolone 125 MG* 2 ML VIAL ONE (13:25)
[2017-10-31] MEDS ORDERED: VERAPAMIL 2.5 MG/ML 2 ML VIAL ** 5 mg/2 ml ONE (13:25)
[2017-10-31] MEDS ORDERED: nitroGLYCERIN DRIP* 25,000 MCG/250 ML BTL ONE (13:26)
[2017-10-31] MEDS ORDERED: Heparin 2 UNITS/ML IVPREMIX* 2,000 ML IV ONE (13:26)
[2017-10-31] MEDS ORDERED: Iodixanol* (CONTRAST) 320 MG/ML 100 ML SDV ONE ×2 (13:27→14:10)
[2017-10-31] MEDS ORDERED: Lidocaine 1%* 5 ML VIAL ONE (13:37)
[2017-10-31 13:42] LABS: EGFR Non-African American 84.4 (>60)
[2017-10-31 13:47] LABS: INR 0.98 (0.77-1.02)
[2017-10-31] MEDS ORDERED: Nitroglycerin TAB 0.4 MG* 0.4 MG TAB SL SCH (14:00)
--- NOTE | 2017-10-31 15:02 | HP ---
CC: Korina Gandhi MD HISTORY AND PHYSICAL: DATE OF ADMISSION: 10/31/17. HISTORY OF PRESENT ILLNESS: A 67-year-old male, presenting to the ER with acute inferior wall ST mark vation infarct. He, in retrospect, has had what he thought was indigestion for the past week, usually lasting less th an 30 minutes, usually occurring during or after meals. Today, at around 12:30, he developed chest pa in similar to the indigestion feeling, but it worsened. Paramedics were called. EKG in the field co nfirmed inferior wall ST elevation infarct. When he arrived in the ER, he was still complaining of c hest pain, although somewhat improved after 1 sublingual nitroglycerin. EKG here confirmed the infer ior infarct. He has not had any history of heart disease, no palpitations, no syncope. PAST MEDICAL HISTORY: Hyperlipidemia, recently diagnosed; recent tick bite for which he is on doxycy diaz; history of nephrolithiasis with multiple prior episodes of lithotripsy, currently asymptomatic . PRE-HOSPITAL MEDICATIONS: 1. Doxycycline. 2. Turmeric. ALLERGIES: CONTRAST DYE, no reaction with premedication. SOCIAL HISTORY: He is a nonsmoker. 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 REVIEW OF SYSTEMS: General: No weight loss, no fevers. 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 GI: No his tory of peptic ulcer disease or bleeding, he does tolerate aspirin. Circulatory: No claudication. Heme: No history of malignancy or anemia. Remainder all negative. PHYSICAL EXAMINATION GENERAL: He was complaining of moderate chest discomfort, not in severe distress. VITAL SIGNS: ER BP 139/76, heart rate in the 70s. HEENT: Normal without xanthelasma. NECK: JVP and carotids normal. No bruits. LUNGS: Clear to percussion and auscultation. CARDIAC EXAM: RV and apex not palpable. Regular rhythm, no gallop or murmur. ABDOMEN: soft, nontender. No bruit. Aorta not palpable. No masses. EXTREMITIES: Radial, femoral and pedal pulses normal. No cyanosis, clubbing, or edema. PSYCH: Oriented and appropriate. SKIN: Warm and perfused. DIAGNOSTIC STUDIES/LAB DATA: EKG at 13:14, sinus rhythm at 78, normal intervals, acute inferior ST elevation infarct with ST elevation in II, III, and AVF, reciprocal ST depression in AVL and V1 throu gh V4. Labs pending. IMPRESSION: 1. Acute inferior wall ST elevation infarct. He will undergo emergent catheterization. We have dis cussed the procedure, risks, plan of care. 2. History of hyperlipidemia. We will measure lipid profile. 3. History of nephrolithiasis, asymptomatic. [id number]/[facility] #: [id number]
[2017-10-31] MEDS ORDERED: Nitroglycerin TAB 0.4 MG* 0.4 MG TAB SL PRN (15:04)
[2017-10-31] MEDS ORDERED: NS 0.9% 1000 ML* 400 ML IV ONE (15:04)
[2017-10-31] MEDS ORDERED: Acetaminophen TAB* 325 MG PO PRN (15:04)
--- NOTE | 2017-10-31 17:13 | CATH ---
CC: Korina Gandhi MD STENT REPORT: DATE OF PROCEDURE: 10/31/17 PROCEDURES: Right radial artery access, bilateral selective coronary cineangiography, left heart cat heterization, left ventriculography, stent placement circumflex 2.5 x 38 mm Synergy drug-eluting sten t post dilated distally with a 2.5 NC, approximated with a 3 mm NC. HISTORY: A 67-year-old male presenting with acute inferior wall ST elevation infarct. PROCEDURE ACCESS: Right radial artery sheath 6-F Slender. MEDICATIONS: In the ER: 1. Heparin 4000 units. 2. Brilinta 180 mg p.o. loading dose. 3. Aspirin en route. soap slabber medications: 1. Solu-Medrol 40 mg IV for history of CONTRAST allergy. 2. Verapamil 3 mg. 3. Nitroglycerin 300 mcg IA. 4. Heparin 3000 units IV, 3000 units IV. DIAGNOSTIC CATHETER: 5F TIG4, 5F pigtail. GUIDING CATHETER: Circumflex 6F LBU 3.5, wire 14 BMW used to primarily deploy a 2.5 x 38 Synergy marta g-eluting stent within the marginal branch 11 atmospheres 15 seconds. The stent was then post dilate d with a 2.5 x 15 NC balloon to 16 atmospheres 30 seconds with overlapping inflations to the large si de branch. From the ostium of the large side branch, the stent was post dilated with a 3.0 x 12 NC b alloon to 16 atmospheres. The 5F pigtail was then used for left-sided pressure recording and LV gram . HEMODYNAMICS: Initial AO 90/60, LV post revascularization 101/2-8, no aortic valve gradient on pullb ack. ANGIOGRAPHY: Left main. The left main is large, short, has no stenosis. LAD. The LAD is moderate in size, extends past the apex, it has scattered mild luminal irregularity but no significant stenosis, the LAD supplies several small diagonal branches. Circumflex. The circumflex is large, dominant, supplies a large first marginal branch which has a pr oximal 80% to 90% hazy stenosis which is the likely culprit, this marginal distally bifurcates, suppl ies the entire obtuse margin, the large side branch has no ostial stenosis. Beyond the side branch, the lower side branch has diffuse luminal irregularity up to 70% stenosis before it bifurcates distal ly supplying the inferolateral surface. The circumflex beyond the marginal has a 40% discrete, eccen tric stenosis, supplies a small inferolateral branch followed by a small to moderate circumflex PDA. There is jajs-nr-dimmv collateral filling to terminal very small distal right coronary branches. Be fore the significant marginal branch, there is a very, very small marginal which has diffuse irregula rity and may be occluded distally, it is less than 0.5 mm in diameter. RCA. The RCA is not dominant, is small, is occluded a few centimeters from the origin. After OM stent placement, post dilatation, there is no residual stenosis, distal flow is LUIS F 3, the jailed large side branch has 50% to 60% ostial stenosis with normal flow, usually not flow-limiting. LV gram: There is very minimal mid inferior hypokinesis, estimated LVEF 55%. CONCLUSION: Single-vessel disease OM1 with inferoposterior infarct, excellent angiographic results w ith drug-eluting stent placement. Normal LVEF with very mild regional wall motion abnormality, julia l left-sided hemodynamics, successful right radial artery access. [id number]/[facility] #: [id number]
[2017-10-31] MEDS: Atorvastatin* 80 MG TAB PO SCH (17:47)
[2017-10-31] MEDS: Metoprolol Tartrate TAB* 25 MG PO SCH ×2 (17:47→23:29)
[2017-10-31] MEDS ORDERED: PTO:DOXYcycline CAP(*) 100 MG PO ONE (18:00)
[2017-10-31] MEDS: Ticagrelor* 90 MG TAB PO SCH (20:58)
[2017-10-31] MEDS ORDERED: Melatonin 3 MG TAB PO PRN (21:55)
[2017-11-01 04:00] LABS: EGFR Non-African American 98.1 (>60)
[2017-11-01] MEDS: Aspirin 81 mg CHEW TAB* 81 MG TAB.CHEW PO SCH (08:29)
[2017-11-01] MEDS: Metoprolol Tartrate TAB* 25 MG PO SCH ×3 (08:29→23:30)
[2017-11-01] MEDS: Ticagrelor* 90 MG TAB PO SCH ×2 (08:29→21:21)
[2017-11-01] MEDS: Atorvastatin* 80 MG TAB PO SCH (17:10)
[2017-11-02] MEDS: Metoprolol Tartrate TAB* 25 MG PO SCH ×3 (08:56→20:42)
[2017-11-02] MEDS: Ticagrelor* 90 MG TAB PO SCH ×2 (08:56→20:41)
[2017-11-02] MEDS: Aspirin 81 mg CHEW TAB* 81 MG TAB.CHEW PO SCH (08:56)
[2017-11-02] MEDS: Atorvastatin* 80 MG TAB PO SCH (17:07)
[2017-11-03 07:30] VITALS: BP 110/63
[2017-11-03] MEDS: Metoprolol Tartrate TAB* 25 MG PO SCH (07:51)
[2017-11-03] MEDS: Aspirin 81 mg CHEW TAB* 81 MG TAB.CHEW PO SCH (07:51)
[2017-11-03] MEDS: Ticagrelor* 90 MG TAB PO SCH (07:51)
--- NOTE | 2017-11-03 15:26 | DS ---
CC: Dr. Korina Gandhi; Kaylee Yee MD * DISCHARGE SUMMARY: DATE OF ADMISSION: 10/31/17 DATE OF DISCHARGE: 11/03/17 FINAL DIAGNOSES: Acute ST segment elevation, inferior wall myocardial infarction. SECONDARY DIAGNOSES: History of hyperlipidemia, history of nephrolithiasis, asymptomatic. HISTORY OF PRESENT ILLNESS AND HOSPITAL COURSE: The patient is a pleasant 67- year- old gentleman who presented to [facility] in the throes of an acute ST segment elevation, inferior wall myocardial infarction. Please refer to the H and P for complete details. On arrival, he was brought emergently to the cardiovascular laboratory by Dr. Korina Gandhi, who performed diagnostic cardiac catheterization and intervention. Cardiac catheterization revealed the LAD to have scattered mild lumen irregularities. The circumflex was a large dominant vessel supplying a large first marginal branch, which had approximately 80 to 90% hazy stenosis, most likely the culprit lesion this marginal branch distally bifurcated supplying the entire obtuse marginal branch. Beyond the side branch, the lower branch had diffuse disease with irregularities up to 70% stenosis before bifurcated distally. Beyond the marginal branch, there was a 40% discrete extrinsic stenosis supplying a small inferolateral branch followed by ytoge-ky-nkyizzfb left-sided posterior descending artery. There was left to right collaterals filling to a terminal very distal right coronary artery branches. Before the significant acute marginal branch, there was a very small marginal branch, which has diffuse irregularities and may have been told they occluded distally, it was less than 0.5 mm in diameter. The right coronary artery was nondominant, small and occluded a few centimeters from its origin. The patient underwent successful stenting of the obtuse marginal with no residual stenosis in LUIS F 3. The jailed large side branch had a 50 to 60% ostial stenosis with normal flow. Left ventriculogram showed minimal mid inferior wall hypokinesis with an EF of 55%. During the course of the hospitalization, he was placed on high-dose statin therapy, aspirin, Brilinta, and beta-bob therapy and did well, was up and about. PHYSICAL EXAMINATION: On the day of discharge, vital signs revealed blood pressure in the 110 to 63 range, pulse was 60 and regular, respirations 16, O2 saturation 99% on room air, afebrile. Neck was supple. No increased JVP. Carotids with good upstroke and volume without bruits. Conjunctivae were pink. Sclerae were clear. Mouth reveals moist mucosa. Lungs revealed no accessory muscle usage. There was good excursion. There were no active rales, rhonchi, or wheezes. Heart revealed no visible heaves. No palpable heaves or thrills. Normal S1, S2. Borderline bradycardic rate. No significant systolic or diastolic murmur. Abdomen was soft, nontender without organomegaly. Extremities were without clubbing, cyanosis, or alexis pitting edema. The right radial artery site was well healed with good antegrade flow. No swelling, tenderness, or significant ecchymosis seen. Neuro: The patient alert, oriented with normal mentation. Musculoskeletal: The patient with normal gait. Psychiatric: The patient with normal affect. DIAGNOSTIC STUDIES/LABORATORY DATA: Electrocardiogram revealed sinus rhythm, heart rate 63, ID interval 0.14, QRS 0.09, QT 0.40, axis is +30 degrees. There was T- wave inversion in II, III, aVF, but no significant Q waves. T-wave inversion was also noted in V5 and V6. Laboratory results during the course of the hospitalization revealed the patient is presenting total CPK of 147, the total CPK peaked at 178, the MB peaked at 18.5. BUN and creatinine on 11/01/17, was normal at 16 and 0.7, potassium 4.0. Hemoglobin A1c was 5.3. The patient received a cardiac education booklet and a stent card and has a scheduled followup appointment with Dr. Gandhi next week for a wound check. MEDICATIONS AT THE TIME OF DISCHARGE: Included, 1. Aspirin 81 mg a day. 2. Atorvastatin 80 mg a day. 3. Metoprolol tartrate 25 mg twice a day. 4. Ticagrelor 90 mg twice a day. The patient will resume his other medications at home with the exception of not taking the nonsteroidal antiinflammatory agents. All of his questions were answered to his satisfaction and I reviewed with him the signs and symptoms to watch for recurrent cardiac symptomatology. [id number]/[facility] #: [id number] MTDD
== END 2017-11-03 11:00 | disposition home or self-care (01) | DRG 174 ==
LOC: ED 13:08 → CHICATH 13:21 → ICU 15:14 → MEDTELE 11-01 11:07
PROVIDERS: ADMIT Internal Medicine Cardiovascular Disease; ATTEND Internal Medicine Cardiovascular Disease
PROC: 4A023N7 Measurement of Cardiac Sampling and Pressure, Left Heart, Percutaneous Approach (ICD-10-PCS; 2017-10-31)
PROC: B2111ZZ Fluoroscopy of Multiple Coronary Arteries using Low Osmolar Contrast (ICD-10-PCS; 2017-10-31)
PROC: B2151ZZ Fluoroscopy of Left Heart using Low Osmolar Contrast (ICD-10-PCS; 2017-10-31)
PROC: 027034Z Dilation of Coronary Artery, One Artery with Drug-eluting Intraluminal Device, Percutaneous Approach (ICD-10-PCS; principal; 2017-10-31 13:00)
DX: I21.19 ST elevation (STEMI) myocardial infarction involving other coronary artery of inferior wall (principal); F32.9 Major depressive disorder, single episode, unspecified; E78.5 Hyperlipidemia, unspecified; F41.9 Anxiety disorder, unspecified; J30.2 Other seasonal allergic rhinitis; K21.9 Gastro-esophageal reflux disease without esophagitis; M48.00 Spinal stenosis, site unspecified; M19.90 Unspecified osteoarthritis, unspecified site; G62.9 Polyneuropathy, unspecified; I25.10 Atherosclerotic heart disease of native coronary artery without angina pectoris; Z85.828 Personal history of other malignant neoplasm of skin; Z82.49 Family history of ischemic heart disease and other diseases of the circulatory system; Z72.89 Other problems related to lifestyle; Z87.442 Personal history of urinary calculi; Z91.041 Radiographic dye allergy status; Z79.82 Long term (current) use of aspirin
CPT/HCPCS: 36415; 80048; 80053; 80061; 82550; 82553; 83036; 83605; 83721; 83874; 83880; 84484; 85025; 85347; 85610; 85730; 86850; 86900; 86901; 87641; 93005; 99156; 99157; 99285; A9270-GY; C1725; C1769; C1876; C1887; C9606-LC; J1644; J2250; J2930; J3010

== ENCOUNTER 2020-08-21 08:20 | Observation (INO) ==
[2020-08-21] MEDS ORDERED: Iohexol 350 (CONTRAST) 200 ML MDV IV ONE (09:51)
[2020-08-21] MEDS ORDERED: Heparin 2 UNITS/ML IVPREMIX 2,000 UNIT/1,000 ML BAG IV ONE (09:51)
[2020-08-21] MEDS ORDERED: Lidocaine 1% VIAL 10 MG/ML VIAL ONE (09:51)
[2020-08-21] MEDS ORDERED: Heparin 2 UNITS/ML IVPREMIX 1,000 UNIT/500 ML BAG IV ONE (09:55)
[2020-08-21] MEDS ORDERED: Midazolam 5 mg/5 ml VIAL 1 mg/ml 5 ml VIAL (5 mg) ONE (09:55)
[2020-08-21] MEDS ORDERED: fentaNYL 100 mcg/2 ml 50 MCG/ML VIAL ONE (09:56)
[2020-08-21] MEDS ORDERED: nitroGLYCERIN DRIP 25,000 MCG/250 ML BTL ONE (09:57)
[2020-08-21] MEDS ORDERED: VERAPAMIL 2.5 MG/ML 2 ML VIAL ** 5 mg/2 ml ONE (09:57)
[2020-08-21] MEDS ORDERED: Heparin 1,000 UNIT/ML 10 ml (10,000 UNITS) CATHLAB/DIALYSIS ONE (09:57)
[2020-08-21] MEDS ORDERED: Bivalirudin 250 MG VIAL ONE (10:34)
[2020-08-21] MEDS ORDERED: NS 0.9% 1000 ml BAG 1,000 ML IV SCH (11:15)
[2020-08-22 05:49] LABS: ABS Basophils 0.1 10^3/ul (0-0.2); ABS Lymphocytes 2.4 10^3/ul (1.0-4.8); ABS Monocytes 1.1 10^3/ul (0-0.8); ABS Neutrophils 11.9 10^3/ul (1.5-7.7); Eosinophil % 0.1 %; Hematocrit 41 % (42-52); Hemoglobin 13.9 g/dL (14.0-18.0); Lymphocyte % 15.5 %; Mean Corpuscular HGB Conc 34 g/dL (31-36); Mean Corpuscular Hemoglobin 34 pg (27-31); Mean Corpuscular Volume 101 fL (80-94); Mean Platelet Volume 10.8 fL (7.4-10.4); Platelet Count 124 10^3/uL (150-450); Red Blood Count 4.06 10^6 /uL (4.18-5.48); Red Cell Distribution Width 13 % (10-15); White Blood Count 15.5 10^3/uL (3.5-10.8)
[2020-08-22 06:27] LABS: Calcium 8.4 mg/dL (8.6-10.3); EGFR African American 114.7 (>60); EGFR Non-African American 94.8 (>60); Potassium 3.8 mmol/L (3.5-5.0)
[2020-08-22] MEDS ORDERED: Potassium Chlor 20 meq TAB.ER PO ONE (06:47)
[2020-08-22 08:34] VITALS: BP 122/73
[2020-08-22] MEDS ORDERED: Potassium Chloride LIQUID 20 MEQ/15 ML LIQUID PO ONE (09:28)
[2020-08-22 09:55] LABS: HDL Cholesterol 44.8 mg/dL
== END 2020-08-22 11:53 | disposition home or self-care (01) ==
LOC: ICU 08:20 → CHICATH 08:20 → MERGE 12:44

== ENCOUNTER 2022-09-01 12:18 | Observation (INO) ==
[2022-09-01 13:21] LABS: Hematocrit 44.4 % (38-53); Hemoglobin 15.1 g/dL (13.2-16.3); INR 1.03 (0.88-1.18); Mean Corpuscular Hgb Conc 33.9 g/dL (31-36); Mean Corpuscular Volume 100.4 fL (80-97); Red Blood Count 4.43 10^6/uL (4.06-5.63); Red Cell Distribution Width 13.4 % (12-17); White Blood Count 6.8 10^3/uL (3.6-10.2)
[2022-09-01 13:27] LABS: Albumin 4.1 g/dL (3.2-5.2); Albumin/Globulin Ratio 1.7 (1-3); Creatinine, Serum 0.83 mg/dL (0.67-1.17); Globulin 2.4 g/dL (2-4); Potassium 4.1 mmol/L (3.5-5.0); Total Bilirubin 0.6 mg/dL (0.2-1.0); Total Protein 6.5 g/dL (6.4-8.9); eGFR CKD-EPI 94.2 (>60)
[2022-09-01 14:04] LABS: ABS Eosinophils 0.1 10^3/uL (0.0-0.5); ABS Lymphocytes 1.7 10^3/uL (1.0-4.8); ABS Monocytes 0.6 10^3/uL (0.0-1.1); ABS Neutrophils 4.3 10^3/uL (1.5-7.6); ABS Nucleated RBC 0.01 10^3/ul; Eosinophil % 1.5 %; Lymphocyte % 25.2 %; Mean Platelet Volume 11.2 fL (7.5-11.2); Nucleated Red Blood Cells % 0.2 /100 WBC (0.0-0.4); Platelet Count 115 10^3/uL (150-450)
[2022-09-01 14:28] LABS: High Sensitivity Troponin 1 Hr 3 pg/mL (<20)
[2022-09-01 14:49] LABS: Magnesium 1.9 mg/dL (1.9-2.7)
[2022-09-01] MEDS ORDERED: Enoxaparin 40 MG/0.4 ML SYR SUBCUT SCH (17:00)
[2022-09-01 20:14] LABS: Folate > 20.00 ng/mL (5.90-24.80)
[2022-09-01 20:15] LABS: Vitamin B12 576 pg/mL (180-914)
[2022-09-02 07:09] LABS: Hematocrit 42.5 % (38-53); Hemoglobin 14.7 g/dL (13.2-16.3); Mean Corpuscular Hemoglobin 34.6 pg (27-33); Mean Corpuscular Hgb Conc 34.5 g/dL (31-36); Mean Corpuscular Volume 100.5 fL (80-97); Platelet Count 116 10^3/uL (150-450); Red Blood Count 4.23 10^6/uL (4.06-5.63); Red Cell Distribution Width 13.1 % (12-17); White Blood Count 6.6 10^3/uL (3.6-10.2)
[2022-09-02 14:15] VITALS: BP 116/68
[2022-09-02] MEDS ORDERED: Al Hydrox/Mg Hydrox/Simet LIQ 30 ML UDC PO ONE (14:18)
== END 2022-09-02 15:25 | disposition home or self-care (01) ==
LOC: ED 12:18 → EDHOLD 12:18 → SUATTDRO 16:27 → MEDTELE 17:52
PROVIDERS: ADMIT Internal Medicine; ATTEND Internal Medicine